=== PATIENT | male | born 1940 | race Hispanic/Latino ===

== ENCOUNTER 2021-05-06 06:51 | Observation (INO) | payer MEDICARE ==
[~2021-05-06] VITALS: Ht 177.8 cm; Wt 74.8 kg
[~2021-05-06 06:51] MED LIST: ROPIVACAINE 246.25 MG, EPINEPHRINE HCL 1:1000 1ML 0.5 MG, CLONIDINE HCL 0.08 MG, KETORO... INJ ONE; SIMVASTATIN20 MG PO; ZESTRIL10 MG PO
[2021-05-06] MEDS ORDERED: GABAPENTIN 300 MG CAP ONE (07:12)
[2021-05-06] MEDS ORDERED: CELECOXIB 200 MG CAP ONE (07:12)
[2021-05-06] MEDS ORDERED: DEXAMETHASONE SOD PHOS 10 MG/1 ML VIAL ONE (07:12)
[2021-05-06] MEDS ORDERED: SODIUM CHLORIDE 0.9% 500ML 500 ML ONE (07:50)
[2021-05-06] MEDS ORDERED: Vancomycin IV 1 GM VIAL ONE (07:50)
[2021-05-06] MEDS ORDERED: TRANEXAMIC ACID 1,000 MG/10 ML ML ONE (07:50)
[2021-05-06] MEDS ORDERED: Vancomycin IV 500 MG ONE (08:34)
[2021-05-06] MEDS ORDERED: DIPHENHYDRAMINE HCL INJ 50 MG/ML VIAL IV PRN (10:30)
[2021-05-06] MEDS ORDERED: HYDROCODONE/APAP 5MG-325MG TAB PO PRN (10:30)
[2021-05-06] MEDS ORDERED: ONDANSETRON HCL INJ 2MG/ML 2ML 2 MG/ML VIAL IV PRN (10:30)
[2021-05-06] MEDS ORDERED: DOCUSATE SODIUM 100 MG CAP PO PRN (10:30)
[2021-05-06] MEDS ORDERED: SODIUM CHLORIDE 0.9% 1000ML 1,000 ML IV SCH (10:30)
[2021-05-06] MEDS ORDERED: ACETAMINOPHEN 650 MG SUPP PR PRN (10:30)
[2021-05-06] MEDS ORDERED: KETOROLAC TROMETHAMINE 30 MG/ML VIAL IV PRN (10:30)
[2021-05-06] MEDS ORDERED: HYDROCODONE/APAP 7.5MG-325MG 1 EA TAB PO PRN (10:30)
[2021-05-06 11:26] VITALS: BP 132/55
[2021-05-06 11:27] VITALS: BP 132/55
[2021-05-06 11:28] VITALS: BP 132/55
[2021-05-06] MEDS ORDERED: ACETAMINOPHEN 1000 MG/100 ML IV PRN (12:00)
[2021-05-06 15:50] VITALS: BP 127/54
[2021-05-06] MEDS ORDERED: Cefazolin 1 GM in SODIUM CHLORIDE 0.9% 50ML 50 ML IV SCH (17:00)
[2021-05-06] MEDS ORDERED: CELECOXIB 100 MG CAP PO SCH (17:00)
[2021-05-06] MEDS ORDERED: ASPIRIN 325 MG TAB PO SCH (17:00)
[2021-05-06] MEDS ORDERED: ZOLPIDEM TARTRATE 5 MG TAB PO PRN (21:00)
== END 2021-05-06 18:31 | disposition home or self-care (01) ==
LOC: OR 06:51 → PACU V 10:34 → MED/SURG 11:15
PROVIDERS: ADMIT Specialist; ATTEND Specialist
DX: M17.0 Bilateral primary osteoarthritis of knee (principal); I10 Essential (primary) hypertension; Z20.822 Contact with and (suspected) exposure to COVID-19; Z01.818 Encounter for other preprocedural examination; E78.2 Mixed hyperlipidemia; N40.0 Benign prostatic hyperplasia without lower urinary tract symptoms
CPT/HCPCS: 27447; 71046; 73560; 86850; 86900; 86920 ×2; 97110; 97116; 97161; 97530; C1713; G0378; J0171; J0690; J1100; J1885; J2795; J3370 ×2; J7030; J7040; U0002